=== PATIENT | female | born 2005 | race Caucasian/White ===

== ENCOUNTER 2023-08-08 11:23 | Outpatient (CLI) | payer OTHER, SELFPAY | END 2023-08-08 11:24 | disposition home or self-care (01) | PROVIDERS: PCP Family Medicine; Visit Provider Family Medicine | DX: Z00.00 Encounter for general adult medical examination without abnormal findings (principal); R73.09 Other abnormal glucose; E66.9 Obesity, unspecified; Z13.6 Encounter for screening for cardiovascular disorders; Z13.9 Encounter for screening, unspecified | CPT/HCPCS: 80048; 80061; 84443; 85025 ==